=== PATIENT | female | born 1990 | race Caucasian/White ===

== ENCOUNTER 2017-06-28 12:29 | Emergency (ER) | payer OTHER ==
[~2017-06-28] VITALS: Ht 154.9 cm; Wt 63.5 kg
[~2017-06-28 12:29] MED LIST: CYCLOBENZAPRINE10 MG PO
[2017-06-28] MEDS ORDERED: ATIVAN1 MG PO (12:42)
[2017-08-03] MEDS ORDERED: PEPCID20 MG PO (18:51)
[2017-08-03] MEDS ORDERED: CITALOPRAM HBR10 MG PO (18:52)
== END 2017-06-28 14:45 | disposition home or self-care (01) ==
LOC: ED 12:29
DX: F32.9 Major depressive disorder, single episode, unspecified (principal)
CPT/HCPCS: 99282

== ENCOUNTER 2017-09-01 16:58 | Emergency (ER) | payer OTHER ==
[~2017-09-01] VITALS: Ht 154.9 cm; Wt 69.8 kg
[~2017-09-01 16:58] MED LIST changes: +ATIVAN1 MG PO; +CITALOPRAM HBR10 MG PO; +PEPCID20 MG PO
[2017-09-01] MEDS ORDERED: IBUPROFEN600 MG PO (19:07)
== END 2017-09-01 19:21 | disposition home or self-care (01) ==
LOC: ED 16:58
DX: N94.6 Dysmenorrhea, unspecified (principal); F32.9 Major depressive disorder, single episode, unspecified; Z91.048 Other nonmedicinal substance allergy status; Z79.899 Other long term (current) drug therapy
CPT/HCPCS: 80053; 84702; 85025; 86850; 86900; 86901; 96361; 96374; 99284; J1885; J7030

== ENCOUNTER 2018-03-17 21:49 | Emergency (ER) | payer OTHER ==
[~2018-03-17] VITALS: Ht 154.9 cm; Wt 69.8 kg
[~2018-03-17 21:49] MED LIST changes: +IBUPROFEN600 MG PO; +TRAMADOL HCL50 MG PO; +ZOFRAN ODT4 MG PO
== END 2018-03-18 00:12 | disposition home or self-care (01) ==
LOC: ED 21:49
DX: R10.11 Right upper quadrant pain (principal); F32.9 Major depressive disorder, single episode, unspecified; Z88.8 Allergy status to other drugs, medicaments and biological substances; Z79.899 Other long term (current) drug therapy
CPT/HCPCS: 76705; 80053; 81001; 83690; 84703; 85025; 96374; 99284; J2405

== ENCOUNTER 2018-07-05 12:30 | Emergency (ER) | payer OTHER ==
[~2018-07-05] VITALS: Ht 157.5 cm; Wt 76.7 kg
[2018-07-05] MEDS ORDERED: PRENATAL 19 CH1 EAC1 PO (13:16)
== END 2018-07-05 13:45 | disposition home or self-care (01) ==
LOC: ED 12:30
DX: R51 Headache (principal); Z88.8 Allergy status to other drugs, medicaments and biological substances; Z79.899 Other long term (current) drug therapy; V48.5XXA Car driver injured in noncollision transport accident in traffic accident, initial encounter
CPT/HCPCS: 99283

== ENCOUNTER 2019-03-28 05:45 | Day surgery (SDC) | payer OTHER ==
[~2019-03-28] VITALS: Ht 157.5 cm; Wt 86.2 kg
--- NOTE | ~2019-03-28 | OR ---
[facility] [address], [place] [address] Draft DATE OF OPERATION: 03/28/2019 SURGEON: Adelina Thompson DO PREOPERATIVE DIAGNOSES: 1. Abnormal uterine bleeding. 2. Thickened endometrium. POSTOPERATIVE DIAGNOSES: 1. Abnormal uterine bleeding. 2. Thickened endometrium. PROCEDURES PERFORMED: 1. Hysteroscopy. 2. Dilation and curettage. GUIDE RAIL CLEANER: None. ANESTHESIA: MAC. ESTIMATED BLOOD LOSS: 10 mL. SPECIMEN: Endometrial curettings. FINDINGS: Normal external genitalia. Normal cervix and vagina. On hysteroscopy, normal appearing uterine cavity with no polyps or fibroids. The endometrium does have some apparent calcified implants that are small and scattered throughout the endometrium that were excised. Hemostasis at the end of procedure. COMPLICATIONS: None. INDICATIONS: Ms. Brown is a pleasant 28-year-old white female, who presented with a miscarriage to the office. Following miscarriage and menses, an ultrasound was performed that PATIENT NAME: CHET BROWN OPERATIVE REPORT DATE OF : [birth year] REPORT #: [id number] PHYSICIAN: ADELINA THOMPSON DO PCP: PHOENIX DAVEY MD REPORT IS CONFIDENTIAL AND NOT TO BE RELEASED WITHOUT AUTHORIZATION [facility] [address], [place] [address] Draft demonstrated significantly thickened endometrium and the patient has a long history of abnormal uterine bleeding. Decision was made to further evaluate this thickened endometrium with hysteroscopy, D and C. Risks, benefits, and alternatives were discussed in detail with the patient. The patient understands and wished to proceed with the procedure. TECHNIQUE: The patient was taken to the operating room, where a time-out was performed to confirm correct patient, correct procedure. MAC anesthesia was adequately established. The patient was prepped and draped in the dorsal lithotomy position with her feet in Yellofin stirrups. ICPs were on and running. No preop antibiotics or heparin were indicated. A weighted speculum was placed in the vagina and the anterior lip of the cervix was grasped with an Allis clamp. The cervix was gently dilated using Hegar dilators to #7. An operative hysteroscope was placed in the cervical os and advanced under direct visualization through the cervix and into the uterine cavity without difficulty. A fairly normal appearing uterine cavity was noted with no gross polyps or fibroids. The endometrium does appear significantly thickened. On closer inspection of the endometrium, there were scattered white lesions consistent with some sort of calcified lesion of the endometrium. A MyoSure REACH device was selected in order to excise the lesions at the fundus as completely as possible and the endometrium was curettaged using the MyoSure REACH without complication. The hysteroscope was withdrawn and good hemostasis was appreciated. Fluid deficit was 220 mL. The patient was then taken to PACU in good and stable condition. Sponge, needle, and instrument count was correct x2 at the end of the procedure. DO DAMARIS Swift/DORYS /[id number] Copies: ~ PATIENT NAME: CHET BROWN OPERATIVE REPORT DATE OF : [birth year] REPORT #: [id number] PHYSICIAN: ADELINA THOMPSON DO PCP: PHOENIX DAVEY MD REPORT IS CONFIDENTIAL AND NOT TO BE RELEASED WITHOUT AUTHORIZATION
[~2019-03-28 05:45] MED LIST changes: +PRENATAL 19 CH1 EAC1 PO
--- NOTE | 2019-03-28 07:46 | NUR ---
03/28/19 0746 Sheets,Sandy 0740 PT ARRIVED TO PACU ASLEEP AND ON RA. PT MAINTAINING OWN AIRWAY AND RESP EVEN AND UNLABORED.
== END 2019-03-28 08:42 | disposition home or self-care (01) ==
LOC: DS 05:45 → OPS 05:45 → DS 06:45 → OPS 08:42 → DS 10:00 → OPS 10:00
PROVIDERS: Obstetrics & Gynecology
PROC: 0UDB8ZZ Extraction of Endometrium, Via Natural or Artificial Opening Endoscopic (ICD-10-PCS; principal; 2019-03-28 06:45)
DX: N84.0 Polyp of corpus uteri (principal); N93.9 Abnormal uterine and vaginal bleeding, unspecified; R93.89 Abnormal findings on diagnostic imaging of other specified body structures; K21.9 Gastro-esophageal reflux disease without esophagitis; F32.9 Major depressive disorder, single episode, unspecified; Z91.048 Other nonmedicinal substance allergy status; Z79.899 Other long term (current) drug therapy
CPT/HCPCS: 00952; J0131; J1100; J1885; J2250; J2405; J2704; J7120